=== PATIENT | male | born 1960 | race Caucasian/White ===

== ENCOUNTER 2017-03-17 07:46 | Emergency (ER) | payer MEDICAID ==
[~2017-03-17] VITALS: Ht 170.2 cm; Wt 72.7 kg
[~2017-03-17 07:46] MED LIST: BUPR150SR PO; CIPOTIC AU; FOLI1 PO; LISI-660 PO; THIA100 PO; VITAD400 PO
[2017-03-17 08:42] LABS: ANION GAP 18 mmol/L (8-16); CALCIUM, TOTAL 8.6 mg/dL (8.8-10.5); CARBON DIOXIDE 20 mmol/L (22-29); CHLORIDE 100 mmol/L (98-107); CREATININE 0.81 mg/dL (0.60-1.30); GLOMERULAR FILTR. RATE CALC > 60 mL/min (>60); POTASSIUM 3.9 mmol/L (3.5-5.1); SODIUM SERUM 138 mmol/L (136-145); UREA NITROGEN, BLOOD 13 mg/dL (7-18)
[2017-03-17 08:48] LABS: ALANINE AMINOTRANSFERASE 50 U/L (12-78); ASPARTATE AMINOTRANSFERASE 37 U/L (15-37); BILIRUBIN,TOTAL 0.4 mg/dL (0.1-1.0); TOTAL PROTEIN, SERUM 7.3 g/dL (6.4-8.2)
[2017-03-17 11:38] VITALS: BP 125/78
== END 2017-03-17 11:40 | disposition home or self-care (01) ==
LOC: EMS 07:48
DX: F10.129 Alcohol abuse with intoxication, unspecified (principal); F17.210 Nicotine dependence, cigarettes, uncomplicated; F12.10 Cannabis abuse, uncomplicated; I10 Essential (primary) hypertension; F31.9 Bipolar disorder, unspecified
CPT/HCPCS: 36415; 80053; 80307; 99284; G0480

== ENCOUNTER 2017-11-06 05:34 | Day surgery (SDC) | payer OTHER ==
[~2017-11-06] VITALS: Ht 170.2 cm; Wt 74.5 kg
[~2017-11-06 05:34] MED LIST changes: -CIPOTIC AU; +CYCLOPENTOLATE HCL 1% 2 ML OPHTHALMIC SOLUTION ONE; +FLURBIPROFEN SODIUM 0.03% 2.5 ML OPHTHALMIC SOLUTION ONE; -LISI-660 PO; +PHENYLEPHRINE HCL 2.5% 2 ML OPHTHALMIC SOLUTION ONE; +RINGERS SOLUTION,LACTATED 500 ML IV ONE; +TETRACAINE HCL/PF 0.5% 4 ML OPHTHALMIC SOLUTION ONE; -THIA100 PO; +TRAZ-147 PO; +TROPICAMIDE 1% 2 ML OPHTHALMIC SOLUTION ONE
[2017-11-06] MEDS ORDERED: FentaNYL CITRATE-PF 100 MCG/2 ML VIAL IVP ONE (05:35)
[2017-11-06] MEDS ORDERED: HYALURONATE SODIUM 12 MG/ML 0.8 ML SYRINGE IO ONE (05:35)
[2017-11-06] MEDS ORDERED: MIDAZOLAM HCL 2 MG/2 ML VIAL IVP ONE (05:35)
[2017-11-06] MEDS ORDERED: CYCLOPENTOLATE HCL 2% 2 ML OPHTHALMIC SOLUTION ONE (05:37)
[2017-11-06] MEDS ORDERED: DICLOFENAC SODIUM 0.1% 2.5 ML OPHTHALMIC SOLUTION ONE (05:37)
[2017-11-06] MEDS ORDERED: RINGERS SOLUTION,LACTATED 500 ML IV ONE (06:00)
[2017-11-06] MEDS: TETRACAINE HCL/PF 0.5% 4 ML OPHTHALMIC SOLUTION OD SCH ×3 (06:28→06:37)
[2017-11-06] MEDS: DICLOFENAC SODIUM 0.1% 2.5 ML OPHTHALMIC SOLUTION OD SCH ×3 (06:28→06:39)
[2017-11-06] MEDS: CYCLOPENTOLATE HCL 2% 2 ML OPHTHALMIC SOLUTION OD SCH ×3 (06:28→06:39)
[2017-11-06] MEDS: BESIFLOXACIN HCL 0.6% 5 ML OPHTHALMIC SUSPENSION OD SCH ×3 (06:28→06:40)
[2017-11-06] MEDS: PHENYLEPHRINE HCL 2.5% 2 ML OPHTHALMIC SOLUTION OD SCH ×3 (06:28→06:43)
[2017-11-06] MEDS ORDERED: MOXIFLOXACIN HCL 0.5% 3 ML OPHTHALMIC SOLUTION ONE (06:30)
[2017-11-06] MEDS ORDERED: PILOCARPINE HCL 4% 15 ML OPHTHALMIC SOLUTION ONE (06:51)
[2017-11-06] MEDS ORDERED: LIDOCAINE HCL/PF 1% 2 ML VIAL ONE (06:51)
[2017-11-06] MEDS ORDERED: EPINEPHrine 1:1,000 [1 MG/ML] AMP ONE (06:52)
[2017-11-06] MEDS ORDERED: SODIUM CHLORIDE 0.45% 0 ML IV ONE (06:53)
[2017-11-06] MEDS ORDERED: AcetaZOLAMIDE SODIUM 500 MG VIAL IVP ONE (06:53)
[2017-11-06] MEDS ORDERED: POVIDONE-IODINE 10% 15 ML SOLUTION UD ONE (06:54)
[2017-11-06] MEDS ORDERED: TETRACAINE HCL VISCOUS 0.5% 5 ML OPHTHALMIC SOLUTION ONE (07:20)
[2017-11-06] MEDS ORDERED: ACETAMINOPHEN 325 MG TABLET PO PRN (07:30)
[2017-11-06] MEDS ORDERED: MOXIFLOXACIN HCL 0.5% 3 ML OPHTHALMIC SOLUTION OD SCH (07:30)
== END 2017-11-06 09:00 | disposition home or self-care (01) ==
LOC: SURGERY 05:34
PROVIDERS: ATTEND Ophthalmology
DX: H25.11 Age-related nuclear cataract, right eye (principal); I10 Essential (primary) hypertension; F17.210 Nicotine dependence, cigarettes, uncomplicated; F11.21 Opioid dependence, in remission; F32.9 Major depressive disorder, single episode, unspecified; F41.9 Anxiety disorder, unspecified; Z98.42 Cataract extraction status, left eye; Z79.899 Other long term (current) drug therapy
CPT/HCPCS: 66984; C1780; J0171; J2250; J3010; J3490; J7120; J1120